=== PATIENT | male | born 1970 | race Caucasian/White ===

== ENCOUNTER 2024-09-30 00:07 | Emergency (ER) | payer BC ==
[~2024-09-30] VITALS: Ht 177.8 cm; Wt 77.1 kg
[2024-09-30 03:21] VITALS: PULSE 85; RESP 20; TEMP 97.7
[2024-09-30 03:57] VITALS: BP 121/73; PULSE 85; RESP 20; TEMP 97.7; O2SAT 97
== END 2024-09-30 03:59 | disposition home or self-care (01) ==
LOC: FSED 00:27
DX: R00.2 Palpitations (principal); R07.89 Other chest pain; I10 Essential (primary) hypertension; E11.65 Type 2 diabetes mellitus with hyperglycemia; E78.5 Hyperlipidemia, unspecified
CPT/HCPCS: 80053; 84484; 85025; 93005; 99284